=== PATIENT | female | born 1990 | race Caucasian/White ===

== ENCOUNTER 2024-10-05 14:26 | Emergency (ER) | payer MEDICAID ==
[~2024-10-05] VITALS: Ht 160 cm; Wt 71.5 kg
[2024-10-05 14:30] VITALS: BP 136/85; PULSE 81; RESP 18; TEMP 98.5; O2SAT 99
== END 2024-10-05 15:12 | disposition short-term general hospital (02) ==
LOC: EMS 14:26
DX: O62.9 Abnormality of forces of labor, unspecified (principal); Z3A.38 38 weeks gestation of pregnancy
CPT/HCPCS: 82962; 99285